=== PATIENT | female | born 1945 | race Caucasian/White ===

== ENCOUNTER 2023-06-27 06:58 | Day surgery (SDC) | payer MEDICARE ==
[~2023-06-27] VITALS: Ht 162.6 cm; Wt 95.5 kg
[~2023-06-27 06:58] MED LIST: ATOR20 PO; Balanced Salt Epinephrine Irrigation Solution 500 mL IR SCH; HYDACE10B PO; LEVSOD137 PO; LEVSOD150 PO; LISI20 PO; Lidocaine HCl/Pf 1% 5 ML VIAL XX SCH; Moxifloxacin HCL 0.5 MG/0.1 ML 0.4MLSYR LEFTEYE SCH; NAPR500 PO; NS 500 ML IV ONE; OXYACE5T PO; PHENYLEPHRINE\\TROPICAMIDE\\TETRACAINE OPHTHALMIC DILATING SOLN LEFTEYE PRN; Povidone-Iodine 450 DROP/30 ML Solution LEFTEYE SCH; Povidone-Iodine 450 DROP/30 ML Solution ONE
[2023-06-27] MEDS ORDERED: Lidocaine HCl/Pf 1% 5 ML VIAL ONE (07:00)
[2023-06-27] MEDS ORDERED: EUTHYROX125 MC1 PO (07:13)
[2023-06-27] MEDS ORDERED: NS 500 ML IV ONE (07:22)
--- NOTE | 2023-06-27 07:24 | NUR ---
[facility]23 [facility]24 [facility] DR AMAYA NOTIFIED OF BLOOD PRESSURE ELEVATION. NO NEW ORDERS RECEIVED.
[2023-06-27] MEDS ORDERED: Tetracaine HCl 0.5% Opth Soln 15 ml LEFTEYE ONE (07:56)
[2023-06-27] MEDS ORDERED: FentaNYL Citrate 50 MCG/ML 2 ML Injection ONE (07:58)
[2023-06-27] MEDS ORDERED: Midazolam HCl 1MG / ML 2ML Vial ONE (07:58)
[2023-06-27 08:19] VITALS: BP 162/92
== END 2023-06-27 08:27 | disposition home or self-care (01) ==
LOC: ORSCSDS 06:58
PROVIDERS: Student in an Organized Health Care Education/Training Program
PROC: 08RK3JZ Replacement of Left Lens with Synthetic Substitute, Percutaneous Approach (ICD-10-PCS; principal; 2023-06-27 08:00)
DX: H25.12 Age-related nuclear cataract, left eye (principal); Z96.1 Presence of intraocular lens; I10 Essential (primary) hypertension; E07.9 Disorder of thyroid, unspecified; K21.9 Gastro-esophageal reflux disease without esophagitis; Z87.891 Personal history of nicotine dependence; Z79.899 Other long term (current) drug therapy
CPT/HCPCS: J2001; J2250; J3010; J7040; V2632